=== PATIENT | female | born 1965 | race African-American/Black ===

== ENCOUNTER → 2024-07-08 | Outpatient (CLI) | payer OTHER | END | disposition home or self-care (01) | LOC: RESCLI 08:49 | PROVIDERS: ATTEND Internal Medicine | DX: H10.10 Acute atopic conjunctivitis, unspecified eye (principal); I10 Essential (primary) hypertension; G47.33 Obstructive sleep apnea (adult) (pediatric); Z88.6 Allergy status to analgesic agent; Z98.890 Other specified postprocedural states; Z79.899 Other long term (current) drug therapy ==